=== PATIENT | male | born 1955 | race Caucasian/White ===

== ENCOUNTER → 2016-05-05 | Outpatient (CLI) | payer OTHER ==
[~2016-05-05] MED LIST: ALDACTONE100 MG PO; ASPIRIN81 M2 PO; ASPIRIN81 MG PO; BIDIL PO; CHEWABLE ASPIRI81 MG PO; CIPRO PO; CLONIDINE PO; COUMADIN PO; FOLIC ACID1 MG PO; GABAPENTIN300 M2 PO; HCTZ; HYDROCHLOROTH12.5 MG PO; IBUPROFEN; LASIX PO; LEVAQUIN PO; LIBRIUM25 M1 DOB; LIBRIUM25 M1 PO; LIPITOR PO; LIPITOR20 MG DOB; LOPRESSOR PO; MAGNESIUM400 MG PO; MEDROL DOSEPAK4 MG; METOPROLOL TAR25 MG PO; METOPROLOL TART25 MG PO; MOBIC PO; NICOTINE TRANSD14 MG EXT; NITROGLYCERIN; NITROSTAT0.4 MG SL; NORCO1 TAB 10/3 PO; PERCOCET 10/3251 TAB PO; PERCOCET 5-3251 TAB PO; PERCOCET 7.5-31 EACH PO; PLAVIX PO; PRILOSEC20 MG PO; PRINIVIL20 M1 PO; PROTONIX PO; THIAMINE HCL100 M1 PO; THIAMINE HCL100 M2 PO; TOPROL XL PO; ZESTRIL10 M1 PO; ZESTRIL40 MG PO
--- NOTE | ~2016-05-05 | XA170 ---
[facility] A Service of [facility] & [facility] RADIOLOGY TEXT RESULTS PATIENT: GUILHERME HECTOR LOCATION: [facility] : [birth year] UNIT #: [id number] AGE: [address]: Jim Branch MD SEX: M ORDER DR: [id number] [facility] [address] [place], [place] [address] [id number] O MR#: [id number] Acc #: [id number] NAME: GUILHERME HECTOR. : 1955 SEX: M STUDY DATE/TIME: 05/05/2016 15:10 UNIT: [facility] ROOM: STUDY DESCRIPTION: XA Paracentesis W Image Attending Physician: Jim Branch M.D. Referring Physician: Jim Branch M.D. Ordering Physician: Jim Branch M.D. Primary Care Physician: Lala Nicholson M.D. MEDICAL IMAGING REPORT This report is preliminary unless electronic signature is present EXAM Ultrasound guided paracentesis INDICATION Ascites. PROCEDURE The risks, benefits, and alternatives to the procedure were explained to the patient and signed, informed consent was obtained. He was placed supine on the stretcher. Preliminary ultrasound of the abdomen was performed which demonstrated a large volume of ascites. This image was permanently saved. The overlying skin was marked. Patient was prepped and draped in the usual sterile fashion. Time-out was performed as per protocol. The skin and subcutaneous tissues were anesthetized with buffered lidocaine and a [employer] catheter was advanced into the fluid with aspiration of serous material. Catheter was hooked to suction tubing. There is evacuation of a total of 12,500 mL of serous material. The catheter was then removed and manual pressure was applied until hemostasis was obtained. IMPRESSION Technically successful ultrasound guided paracentesis with evacuation of 12,500 mL of serous material. Ultrasound was used during the procedure and permanent images were saved. Dictated by... Padmini Page M.D. THIS IS AN ELECTRONICALLY VERIFIED REPORT Padmini Page M.D. at 05/06/2016 5:11 PM AFF/jw TD: 05/06/2016 10:13 [facility] A Service of [facility] & [facility] RADIOLOGY TEXT RESULTS PATIENT: GUILHERME HECTOR LOCATION: [facility] ACC #: [id number] : [birth year] UNIT #: [id number] AGE: [address]: Jim Branch MD SEX: M ORDER DR: JOB #: [id number] MEDICAL IMAGING REPORT COPY
== END | disposition home or self-care (01) ==
LOC: CIVR 13:49
DX: R18.8 Other ascites (principal)

== ENCOUNTER → 2016-05-14 | Outpatient (CLI) | payer OTHER ==
[2016-05-14 10:01] LABS: ALKALINE PHOSPHATASE 148 U/L (32-92); ALT (SGPT) 52 U/L (10-40); AST (SGOT) 78 U/L (10-42); BILIRUBIN,TOTAL 3.8 mg/dL (0.2-2.0); BLOOD UREA NITROGEN 13 mg/dL (9-23); BUN/CREATININE RATIO 18.57; CALCIUM SERUM 8.2 mg/dL (8.4-10.2); CARBON DIOXIDE 28 mmol/L (22-31); CHLORIDE 108 mmol/L (100-111); CREATININE SERUM 0.7 mg/dL (0.6-1.4); GLOM FILT RATE Estimated ABOVE60 mL/min (>60); GLUCOSE FASTING 108 mg/dL (70-110); POTASSIUM 4.4 mmol/L (3.5-5.1); PROTEIN TOTAL SERUM 6.8 g/dL (6.0-8.3); SODIUM 136 mmol/L (135-145)
== END | disposition home or self-care (01) ==
LOC: CLAB 08:28
PROVIDERS: Internal Medicine
DX: K74.60 Unspecified cirrhosis of liver (principal); B19.10 Unspecified viral hepatitis B without hepatic coma
CPT/HCPCS: 36415; 80053; 87517; 87522

== ENCOUNTER → 2016-05-20 | Outpatient (CLI) | payer OTHER ==
--- NOTE | ~2016-05-20 | XA170 ---
[facility] A Service of [facility] & [facility] RADIOLOGY TEXT RESULTS PATIENT: GUILHERME HECTOR LOCATION: [facility] : [birth year] UNIT #: [id number] AGE: [address]: Jim Branch MD SEX: M ORDER DR: [id number] [facility] [address] [place], [place] [address] [id number] O MR#: [id number] Acc #: [id number] NAME: GUILHERME HECTOR. : 1955 SEX: M STUDY DATE/TIME: 05/20/2016 12:07 UNIT: [facility] ROOM: STUDY DESCRIPTION: XA Paracentesis W Image Attending Physician: Jim Branch M.D. Referring Physician: Jim Branch M.D. Ordering Physician: Jim Branch M.D. Primary Care Physician: Lala Nicholson M.D. MEDICAL IMAGING REPORT This report is preliminary unless electronic signature is present EXAM Ultrasound-guided paracentesis, 05/20/2016. HISTORY Recurrent ascites. TECHNIQUE Using ultrasound guidance, a skin site was selected and marked. After sterile preparation, draping, and local anesthesia, paracentesis was performed with a [employer] needle catheter. A total of 14.2 liters of fluid were removed. There were no complications, and the patient tolerated the procedure well. IMPRESSION Successful ultrasound-guided right lower quadrant paracentesis with removal of 14.2 liters of fluid without complication. Dictated by... Alvaro Sidhu M.D. THIS IS AN ELECTRONICALLY VERIFIED REPORT Alvaro Sidhu M.D. at 05/25/2016 5:06 PM MONROE/roger TD: 05/22/2016 13:56 JOB #: [id number] MEDICAL IMAGING REPORT COPY
[2016-05-20 11:28] LABS: HEMATOCRIT 41.6 % (38.0-50.0); HEMOGLOBIN 14.3 gm/dL (13.0-16.0); MEAN CELL VOLUME 106.7 FL (83-96); MEAN CORPUSCULAR HEMOGLOBIN 36.6 PG (28-34); MEAN CORPUSCULAR HGB CONC 34.3 g/dL (30-36); MEAN PLATELET VOLUME 8.8 FL (6.5-11.5); RED BLOOD COUNT 3.9 X10e (3.90-5.60); RED CELL DISTRIBUTION WIDTH 14.5 % (11.0-15.5); WHITE BLOOD COUNT 6.9 X10e3 (4.0-10.5)
[2016-05-20 11:37] LABS: INR 1.4; PARTIAL THROMBOPLASTIN TIME 33.1 SECONDS (23.5-31.3); PROTHROMBIN TIME (PATIENT) 14.9 SECONDS (9.6-11.5)
== END | disposition home or self-care (01) ==
LOC: CIVR 10:56
PROVIDERS: Internal Medicine
DX: R18.8 Other ascites (principal)
CPT/HCPCS: 36415; 85027; 85610; 85730

== ENCOUNTER 2016-05-22 08:34 | Emergency (ER) | payer OTHER ==
[2016-05-22 08:40] LABS: BASOPHIL# 0.1 X10e3 (0-0.3); EOSINOPHIL# 0.3 X10e3 (0-0.7); EOSINOPHIL% 5.1 % (0.0-7.0); HEMATOCRIT 43.4 % (38.0-50.0); HEMOGLOBIN 14.9 gm/dL (13.0-16.0); LYMPHOCYTE# 1.1 X10e3 (1.0-3.5); MEAN CELL VOLUME 107.8 FL (83-96); MEAN CORPUSCULAR HGB CONC 34.3 g/dL (30-36); MEAN PLATELET VOLUME 9.2 FL (6.5-11.5); MONOCYTE# 1.2 X10e3 (0-1.0); MONOCYTE% 19.5 % (3.0-12.0); NEUTROPHIL# 3.3 X10e3 (1.5-7.1); NEUTROPHIL% 55.4 % (40-75); RED BLOOD COUNT 4.03 X10e (3.90-5.60); RED CELL DISTRIBUTION WIDTH 14.6 % (11.0-15.5)
[2016-05-22 09:01] LABS: DIFF IND YES; PLATELET COUNT 72 X10e3 (140-420)
[2016-05-22 09:20] LABS: BLOOD UREA NITROGEN 15 mg/dL (9-23); BUN/CREATININE RATIO 18.75; CARBON DIOXIDE 29 mmol/L (22-31); CHLORIDE 103 mmol/L (100-111); CREATININE SERUM 0.8 mg/dL (0.6-1.4); GLOM FILT RATE Estimated ABOVE60 mL/min (>60); GLUCOSE FASTING 98 mg/dL (70-110); POTASSIUM 4.4 mmol/L (3.5-5.1); SODIUM 131 mmol/L (135-145)
[2016-05-22 09:24] LABS: PLATELET ESTIMATE DECREASED (NORMAL)
[2016-05-22 09:26] LABS: ANISOCYTOSIS SL
== END 2016-05-22 10:07 | disposition home or self-care (01) ==
LOC: CED 08:34
PROVIDERS: Nurse Practitioner Family
DX: M62.838 Other muscle spasm (principal); I25.2 Old myocardial infarction; I10 Essential (primary) hypertension; F17.210 Nicotine dependence, cigarettes, uncomplicated
CPT/HCPCS: 36415; 80048; 85025; 99284

== ENCOUNTER → 2016-06-05 | Outpatient (CLI) | payer OTHER ==
--- NOTE | ~2016-06-05 | XA170 ---
[facility] A Service of [facility] & [facility] RADIOLOGY TEXT RESULTS PATIENT: GUILHERME HECTOR LOCATION: [facility] : [birth year] UNIT #: [id number] AGE: [address]: Jim Branch MD SEX: M ORDER DR: [id number] [facility] [address] [place], [place] [address] [id number] O MR#: [id number] Acc #: [id number] NAME: GUILHERME HECTOR. : 1955 SEX: M STUDY DATE/TIME: 06/05/2016 9:41 UNIT: [facility] ROOM: STUDY DESCRIPTION: XA Paracentesis W Image Attending Physician: Jim Branch M.D. Ordering Physician: Jim Branch M.D. Primary Care Physician: Lala Nicholson M.D. MEDICAL IMAGING REPORT This report is preliminary unless electronic signature is present EXAM Ultrasound-guided paracentesis INDICATIONS Ascites. PROCEDURE Risks, benefits, and alternatives to the procedure were explained to the patient, and signed, informed consent was obtained. He was placed supine on the stretcher. Preliminary ultrasound of the abdomen was performed which demonstrated a large volume of ascites. This image was permanently saved overlying skin was marked. Patient was prepped and draped in the usual sterile fashion. Time-out was performed as per protocol. Skin and subcutaneous tissues were anesthetized with buffered lidocaine and a Yueh catheter was advanced into the fluid with aspiration of serous material. Catheter was hooked to suction tubing. There was evacuation of 12.2 L of serous material catheter was then removed and manual pressure was applied until hemostasis was obtained. IMPRESSION Technically successful ultrasound-guided paracentesis with evacuation of 12.2 L of serous material. Ultrasound was used during the procedure and permanent images were saved. Dictated by... Padmini Page M.D. THIS IS AN ELECTRONICALLY VERIFIED REPORT Padmini Page M.D. at 06/08/2016 4:46 PM AFF/rnr TD: 06/05/2016 23:08 JOB #: [id number] [facility]. [facility] A Service of [facility] & [facility] RADIOLOGY TEXT RESULTS PATIENT: GUILHERME HECTOR LOCATION: [facility] #: [id number] : [birth year] UNIT #: [id number] AGE: [address]: Jim Branch MD SEX: M ORDER DR: MEDICAL IMAGING REPORT Page 1 of 1 COPY
== END | disposition home or self-care (01) ==
LOC: CIVR 09:37
PROC: 0W9G3ZX Drainage of Peritoneal Cavity, Percutaneous Approach, Diagnostic (ICD-10-PCS; principal; 2016-06-05)
DX: R18.8 Other ascites (principal)

== ENCOUNTER → 2016-06-22 | Outpatient (CLI) | payer OTHER ==
--- NOTE | ~2016-06-22 | XA170 ---
[facility] A Service of [facility] & [facility] RADIOLOGY TEXT RESULTS PATIENT: GUILHERME HECTOR LOCATION: [facility] : 57 UNIT #: [id number] AGE: [address]: Jim Branch MD SEX: M ORDER DR: [id number] [facility] [address] [place], [place] [address] [id number] O MR#: [id number] Acc #: [id number] NAME: GUILHERME HECTOR. : 1955 SEX: M STUDY DATE/TIME: 06/22/2016 10:22 UNIT: [facility] ROOM: STUDY DESCRIPTION: XA Paracentesis W Image Attending Physician: Jim Branch M.D. Referring Physician: Jim Branch M.D. Ordering Physician: Jim Branch M.D. Primary Care Physician: Lala Nicholson M.D. MEDICAL IMAGING REPORT This report is preliminary unless electronic signature is present EXAM Ultrasound-guided paracentesis INDICATION Ascites. PROCEDURE The risks, benefits, and alternatives to the procedure were explained to the patient, and signed, informed consent was obtained. Patient was placed supine on a stretcher. Preliminary ultrasound of the abdomen was performed which demonstrated a large volume of ascites. This image was permanently saved. Overlying skin was marked. Patient was prepped and draped in the usual sterile fashion. Time-out was performed as per protocol. Skin and subcutaneous tissues were anesthetized with buffered Lidocaine. [employer] catheter was advanced into the fluid with aspiration of serous material. Catheter was hooked to suction tubing and there was evacuation of a total of 12,100 mL of serous material. Catheter was then removed and manual pressure was applied until hemostasis was obtained. IMPRESSION Technically successful ultrasound-guided paracentesis with evacuation of 12,100 mL of serous material. Ultrasound was used during the procedure and permanent images were saved. Dictated by... Padmini Page M.D. THIS IS AN ELECTRONICALLY VERIFIED REPORT Padmini Page M.D. at 06/24/2016 12:21 PM AFF/mjs TD: 06/23/2016 10:23 [facility] A Service of [facility] & [facility] RADIOLOGY TEXT RESULTS PATIENT: GUILHERME HECTOR LOCATION: [facility] ACC #: [id number] : [birth year] UNIT #: [id number] AGE: [address]: Jim Branch MD SEX: M ORDER DR: JOB #: [id number] MEDICAL IMAGING REPORT Page 1 of 1 COPY
[2016-06-22 10:26] LABS: BASOPHIL% 0.4 % (0-2.5); EOSINOPHIL# 0.3 X10e3 (0-0.7); EOSINOPHIL% 4.8 % (0.0-7.0); HEMATOCRIT 42.3 % (38.0-50.0); HEMOGLOBIN 14.2 gm/dL (13.0-16.0); LYMPHOCYTE% 14.1 % (17.0-45.0); MEAN CELL VOLUME 108.5 FL (83-96); MEAN CORPUSCULAR HEMOGLOBIN 36.3 PG (28-34); MEAN CORPUSCULAR HGB CONC 33.4 g/dL (30-36); MONOCYTE# 1.1 X10e3 (0-1.0); MONOCYTE% 16.3 % (3.0-12.0); NEUTROPHIL# 4.4 X10e3 (1.5-7.1); NEUTROPHIL% 64.4 % (40-75); RED CELL DISTRIBUTION WIDTH 15.4 % (11.0-15.5); WHITE BLOOD COUNT 6.8 X10e3 (4.0-10.5)
[2016-06-22 10:38] LABS: INR 1.4; PROTHROMBIN TIME (PATIENT) 14.7 SECONDS (9.6-11.5)
[2016-06-22 10:40] LABS: DIFF IND YES; PLATELET COUNT 85 X10e3 (140-420)
[2016-06-22 10:42] LABS: ANISOCYTOSIS SL; PLATELET ESTIMATE DECREASED (NORMAL)
== END | disposition home or self-care (01) ==
LOC: CIVR 09:55
PROVIDERS: Internal Medicine
DX: R18.8 Other ascites (principal)
CPT/HCPCS: 36415; 85025; 85610; 85730

== ENCOUNTER 2016-08-13 00:10 | Emergency (ER) | payer OTHER ==
[2016-08-13 02:02] LABS: URINE SOURCE CLEAN CATCH
[2016-08-13 02:13] LABS: URINE APPEARANCE CLEAR; URINE BACTERIA AUWI NEG (NEGATIVE); URINE BILIRUBIN NEG (NEG); URINE BLOOD 1+ (NEG); URINE COLOR YELLOW; URINE GLUCOSE NEG (NEG); URINE KETONE NEG (NEG); URINE LEUKOCYTE ESTERASE TRACE (NEG); URINE NITRATE NEG (NEG); URINE PROTEIN NEG (NEG); URINE SPECIFIC GRAVITY 1.012 (1.003-1.035); URINE SQUAMOUS EPITHELIAL CELL NONE SEEN /[HPF]; URINE UROBILINOGEN 0.2 MG/DL (NEG)
[2016-08-13 02:14] LABS: CULTURE INDICATED? NO
[2016-08-13 03:28] LABS: BASOPHIL% 0.4 % (0-2.5); EOSINOPHIL# 0.1 X10e3 (0-0.7); EOSINOPHIL% 1.6 % (0.0-7.0); HEMATOCRIT 39.5 % (38.0-50.0); HEMOGLOBIN 13.6 gm/dL (13.0-16.0); LYMPHOCYTE# 0.6 X10e3 (1.0-3.5); LYMPHOCYTE% 7.9 % (17.0-45.0); MEAN CELL VOLUME 106.5 FL (83-96); MEAN CORPUSCULAR HEMOGLOBIN 36.7 PG (28-34); MEAN CORPUSCULAR HGB CONC 34.4 g/dL (30-36); MEAN PLATELET VOLUME 9.1 FL (6.5-11.5); MONOCYTE# 1.5 X10e3 (0-1.0); NEUTROPHIL# 5.4 X10e3 (1.5-7.1); NEUTROPHIL% 70.1 % (40-75); RED BLOOD COUNT 3.71 X10e (3.90-5.60); RED CELL DISTRIBUTION WIDTH 15.1 % (11.0-15.5); WHITE BLOOD COUNT 7.7 X10e3 (4.0-10.5)
[2016-08-13 04:02] LABS: ALBUMIN SERUM 3.1 g/dL (3.5-5.0); BILIRUBIN,TOTAL 4.5 mg/dL (0.2-2.0); CALCIUM SERUM 9.1 mg/dL (8.4-10.2); CREATININE SERUM 0.9 mg/dL (0.6-1.4); GLOM FILT RATE Estimated 93.2 mL/min (>60); PROTEIN TOTAL SERUM 7.3 g/dL (6.0-8.3)
[2016-08-13 04:13] LABS: DIFF IND YES; PLATELET COUNT 68 X10e3 (140-420)
[2016-08-13 04:21] LABS: PLATELET ESTIMATE DECREASED (NORMAL)
== END 2016-08-13 05:25 | disposition home or self-care (01) ==
LOC: CED 00:10
PROVIDERS: Physician Assistant
DX: R33.9 Retention of urine, unspecified (principal); F17.210 Nicotine dependence, cigarettes, uncomplicated; Z79.899 Other long term (current) drug therapy
CPT/HCPCS: 36415; 51702; 80053; 81003; 85025; 99284

== ENCOUNTER 2016-08-13 14:41 | Emergency (ER) | payer OTHER | END 2016-08-13 15:20 | disposition home or self-care (01) | LOC: CED 14:41 | DX: T83.091A Other mechanical complication of indwelling urethral catheter, initial encounter (principal); R33.9 Retention of urine, unspecified | CPT/HCPCS: 51702; 99284 ==

== ENCOUNTER → 2016-08-19 | Outpatient (CLI) | payer OTHER ==
[2016-08-19 11:11] LABS: INR 1.3; PROTHROMBIN TIME (PATIENT) 13.7 SECONDS (9.6-11.5)
[2016-08-19 11:19] LABS: HEMOGLOBIN 14.4 gm/dL (13.0-16.0); MEAN CELL VOLUME 109.3 FL (83-96); MEAN CORPUSCULAR HEMOGLOBIN 37.4 PG (28-34); MEAN CORPUSCULAR HGB CONC 34.2 g/dL (30-36); RED BLOOD COUNT 3.84 X10e (3.90-5.60); RED CELL DISTRIBUTION WIDTH 16.4 % (11.0-15.5); WHITE BLOOD COUNT 8.1 X10e3 (4.0-10.5)
[2016-08-19 11:27] LABS: ALBUMIN SERUM 2.9 g/dL (3.5-5.0); ALKALINE PHOSPHATASE 161 U/L (32-92); ALT (SGPT) 69 U/L (10-40); AST (SGOT) 84 U/L (10-42); BILIRUBIN,TOTAL 5.6 mg/dL (0.2-2.0); BLOOD UREA NITROGEN 33 mg/dL (9-23); BUN/CREATININE RATIO 20.62; CALCIUM SERUM 9.7 mg/dL (8.4-10.2); CARBON DIOXIDE 28 mmol/L (22-31); CHLORIDE 97 mmol/L (100-111); CREATININE SERUM 1.6 mg/dL (0.6-1.4); GLOM FILT RATE Estimated 46.5 mL/min (>60); GLUCOSE FASTING 99 mg/dL (70-110); POTASSIUM 5.4 mmol/L (3.5-5.1); PROTEIN TOTAL SERUM 7.5 g/dL (6.0-8.3); SODIUM 134 mmol/L (135-145)
[2016-08-19 11:29] LABS: ALCOHOL BLOOD <5 mg/dL (0)
[2016-08-19 11:38] LABS: AMPHETAMINE NEG (NEG); BARBITURATES NEG (NEG); BENZODIAZEPINES NEG (NEG); COCAINE NEG (NEG); MARIJUANA NEG (NEG); OPIATES NEG (NEG); TRICYCLIC ANTIDEPRESSANTS NEG (NEG); U METHADONE NEG (NEG)
== END | disposition home or self-care (01) ==
LOC: CTPL 10:04
PROVIDERS: Internal Medicine
DX: C22.0 Liver cell carcinoma (principal); B18.2 Chronic viral hepatitis C
CPT/HCPCS: 36415; 80053; 80307; 85027; 85610; G0480

== ENCOUNTER → 2016-09-10 | Outpatient (CLI) | payer OTHER ==
[2016-09-10 13:02] LABS: BASOPHIL# 0.1 X10e3 (0-0.3); BASOPHIL% 0.8 % (0-2.5); EOSINOPHIL# 0.3 X10e3 (0-0.7); EOSINOPHIL% 2.8 % (0.0-7.0); HEMATOCRIT 27.6 % (38.0-50.0); HEMOGLOBIN 9.1 gm/dL (13.0-16.0); LYMPHOCYTE# 0.4 X10e3 (1.0-3.5); LYMPHOCYTE% 3.8 % (17.0-45.0); MEAN CELL VOLUME 92.9 FL (83-96); MEAN CORPUSCULAR HEMOGLOBIN 30.5 PG (28-34); MEAN CORPUSCULAR HGB CONC 32.8 g/dL (30-36); MEAN PLATELET VOLUME 7.2 FL (6.5-11.5); MONOCYTE# 1.2 X10e3 (0-1.0); MONOCYTE% 12.6 % (3.0-12.0); NEUTROPHIL# 7.6 X10e3 (1.5-7.1); PLATELET COUNT 401 X10e3 (140-420); RED BLOOD COUNT 2.97 X10e (3.90-5.60); RED CELL DISTRIBUTION WIDTH 18.7 % (11.0-15.5); WHITE BLOOD COUNT 9.5 X10e3 (4.0-10.5)
[2016-09-10 13:03] LABS: DIFF IND YES
[2016-09-10 13:21] LABS: ALBUMIN SERUM 2.5 g/dL (3.5-5.0); ANISOCYTOSIS MOD; BILIRUBIN,TOTAL 0.4 mg/dL (0.2-2.0); BUN/CREATININE RATIO 18.33; CALCIUM SERUM 8.4 mg/dL (8.4-10.2); CREATININE SERUM 1.2 mg/dL (0.6-1.4); GLOM FILT RATE Estimated 65.8 mL/min (>60); HYPOCHROMIA SL; MAGNESIUM 1.4 mg/dL (1.6-3.0); PHOSPHOROUS 3.6 mg/dL (2.5-4.6); PLATELET ESTIMATE NORMAL (NORMAL); POLYCHROMASIA SL; POTASSIUM 4.9 mmol/L (3.5-5.1); PROTEIN TOTAL SERUM 5.6 g/dL (6.0-8.3)
== END | disposition home or self-care (01) ==
LOC: CTPL 12:09 → CLAB 12:09
PROVIDERS: Surgery
DX: Z48.23 Encounter for aftercare following liver transplant (principal); T45.1X1D Poisoning by antineoplastic and immunosuppressive drugs, accidental (unintentional), subsequent encounter; E83.40 Disorders of magnesium metabolism, unspecified; E83.30 Disorder of phosphorus metabolism, unspecified; C22.0 Liver cell carcinoma; Z13.1 Encounter for screening for diabetes mellitus; Z79.891 Long term (current) use of opiate analgesic
CPT/HCPCS: 36415; 80053; 80197; 83735; 84100; 85025

== ENCOUNTER → 2016-09-14 | Outpatient (CLI) | payer OTHER ==
[2016-09-14 12:15] LABS: BASOPHIL# 0.1 X10e3 (0-0.3); BASOPHIL% 1.2 % (0-2.5); EOSINOPHIL# 0.1 X10e3 (0-0.7); EOSINOPHIL% 0.9 % (0.0-7.0); HEMATOCRIT 30.3 % (38.0-50.0); HEMOGLOBIN 9.7 gm/dL (13.0-16.0); LYMPHOCYTE# 0.4 X10e3 (1.0-3.5); LYMPHOCYTE% 3.6 % (17.0-45.0); MEAN CELL VOLUME 92.4 FL (83-96); MEAN CORPUSCULAR HEMOGLOBIN 29.7 PG (28-34); MEAN CORPUSCULAR HGB CONC 32.1 g/dL (30-36); MEAN PLATELET VOLUME 6.8 FL (6.5-11.5); MONOCYTE# 0.9 X10e3 (0-1.0); MONOCYTE% 7.5 % (3.0-12.0); NEUTROPHIL# 10.4 X10e3 (1.5-7.1); NEUTROPHIL% 86.8 % (40-75); PLATELET COUNT 501 X10e3 (140-420); RED BLOOD COUNT 3.28 X10e (3.90-5.60); RED CELL DISTRIBUTION WIDTH 19.3 % (11.0-15.5)
[2016-09-14 12:16] LABS: DIFF IND YES
[2016-09-14 12:24] LABS: CHOLESTEROL 175 mg/dL (0-200); TRIGLYCERIDES 190 mg/dL (10-160)
[2016-09-14 12:38] LABS: BILIRUBIN,TOTAL 0.3 mg/dL (0.2-2.0); BUN/CREATININE RATIO 14.54; CALCIUM SERUM 8.4 mg/dL (8.4-10.2); CREATININE SERUM 1.1 mg/dL (0.6-1.4); GLOM FILT RATE Estimated 73.1 mL/min (>60); MAGNESIUM 1.4 mg/dL (1.6-3.0); PHOSPHOROUS 4.2 mg/dL (2.5-4.6); POTASSIUM 4.4 mmol/L (3.5-5.1); PROTEIN TOTAL SERUM 6.4 g/dL (6.0-8.3)
[2016-09-14 13:08] LABS: PLATELET ESTIMATE INCREASED (NORMAL)
[2016-09-14 13:09] LABS: ANISOCYTOSIS MOD; POLYCHROMASIA SL
[2016-09-16 15:01] LABS: HEP B SURFACE AG Nonreactive (Nonreactive)
== END | disposition home or self-care (01) ==
LOC: CTPL 11:25
PROVIDERS: Surgery
DX: Z48.23 Encounter for aftercare following liver transplant (principal); T45.1X1D Poisoning by antineoplastic and immunosuppressive drugs, accidental (unintentional), subsequent encounter; E83.40 Disorders of magnesium metabolism, unspecified; E83.30 Disorder of phosphorus metabolism, unspecified; K73.2 Chronic active hepatitis, not elsewhere classified; B97.7 Papillomavirus as the cause of diseases classified elsewhere; Z79.891 Long term (current) use of opiate analgesic
CPT/HCPCS: 36415; 80053; 80197; 82465; 83735; 84100; 84478; 85025; 87340; 87517; 87522; 87806

== ENCOUNTER → 2016-09-17 | Outpatient (CLI) | payer OTHER ==
[2016-09-17 10:13] LABS: BASOPHIL# 0.2 X10e3 (0-0.3); BASOPHIL% 1.4 % (0-2.5); EOSINOPHIL# 0.3 X10e3 (0-0.7); EOSINOPHIL% 1.9 % (0.0-7.0); HEMATOCRIT 29.8 % (38.0-50.0); HEMOGLOBIN 9.4 gm/dL (13.0-16.0); LYMPHOCYTE# 0.5 X10e3 (1.0-3.5); LYMPHOCYTE% 3.4 % (17.0-45.0); MEAN CELL VOLUME 92.2 FL (83-96); MEAN CORPUSCULAR HEMOGLOBIN 29.2 PG (28-34); MEAN CORPUSCULAR HGB CONC 31.7 g/dL (30-36); MEAN PLATELET VOLUME 6.4 FL (6.5-11.5); MONOCYTE# 1.1 X10e3 (0-1.0); MONOCYTE% 7.3 % (3.0-12.0); NEUTROPHIL# 13.1 X10e3 (1.5-7.1); PLATELET COUNT 407 X10e3 (140-420); RED BLOOD COUNT 3.23 X10e (3.90-5.60); RED CELL DISTRIBUTION WIDTH 19.7 % (11.0-15.5); WHITE BLOOD COUNT 15.3 X10e3 (4.0-10.5)
[2016-09-17 10:15] LABS: DIFF IND YES
[2016-09-17 11:24] LABS: ANISOCYTOSIS MOD; POLYCHROMASIA SL
[2016-09-17 11:25] LABS: PLATELET ESTIMATE NORMAL (NORMAL)
[2016-09-17 12:07] LABS: BILIRUBIN,TOTAL 0.3 mg/dL (0.2-2.0); CALCIUM SERUM 8.8 mg/dL (8.4-10.2); CREATININE SERUM 1.2 mg/dL (0.6-1.4); GLOM FILT RATE Estimated 65.8 mL/min (>60); MAGNESIUM 1.5 mg/dL (1.6-3.0); PHOSPHOROUS 3.2 mg/dL (2.5-4.6); PROTEIN TOTAL SERUM 6.1 g/dL (6.0-8.3)
== END | disposition home or self-care (01) ==
LOC: CTPL 09:40
PROVIDERS: Surgery
DX: Z48.23 Encounter for aftercare following liver transplant (principal); T45.1X1D Poisoning by antineoplastic and immunosuppressive drugs, accidental (unintentional), subsequent encounter; E83.40 Disorders of magnesium metabolism, unspecified; E83.30 Disorder of phosphorus metabolism, unspecified; B18.1 Chronic viral hepatitis B without delta-agent; Z79.891 Long term (current) use of opiate analgesic
CPT/HCPCS: 36415; 80053; 80197; 83735; 84100; 85025

== ENCOUNTER 2016-09-19 05:30 | Emergency (ER) | payer OTHER | END 2016-09-19 06:33 | disposition home or self-care (01) | LOC: CED 05:30 | DX: R10.9 Unspecified abdominal pain (principal); I10 Essential (primary) hypertension; F17.200 Nicotine dependence, unspecified, uncomplicated; Z90.49 Acquired absence of other specified parts of digestive tract; Z87.442 Personal history of urinary calculi | CPT/HCPCS: 99283 ==

== ENCOUNTER → 2016-09-21 | Outpatient (CLI) | payer OTHER ==
[2016-09-21 12:16] LABS: BASOPHIL# 0.3 X10e3 (0-0.3); BASOPHIL% 2.1 % (0-2.5); EOSINOPHIL# 0.1 X10e3 (0-0.7); EOSINOPHIL% 0.7 % (0.0-7.0); HEMATOCRIT 30.2 % (38.0-50.0); HEMOGLOBIN 10.1 gm/dL (13.0-16.0); LYMPHOCYTE# 0.4 X10e3 (1.0-3.5); LYMPHOCYTE% 3.2 % (17.0-45.0); MEAN CELL VOLUME 92.2 FL (83-96); MEAN CORPUSCULAR HEMOGLOBIN 30.9 PG (28-34); MEAN CORPUSCULAR HGB CONC 33.5 g/dL (30-36); MEAN PLATELET VOLUME 6.5 FL (6.5-11.5); MONOCYTE# 0.9 X10e3 (0-1.0); MONOCYTE% 6.9 % (3.0-12.0); NEUTROPHIL# 11.8 X10e3 (1.5-7.1); NEUTROPHIL% 87.1 % (40-75); PLATELET COUNT 333 X10e3 (140-420); RED BLOOD COUNT 3.28 X10e (3.90-5.60); RED CELL DISTRIBUTION WIDTH 19.9 % (11.0-15.5); WHITE BLOOD COUNT 13.5 X10e3 (4.0-10.5)
[2016-09-21 12:30] LABS: DIFF IND NO
[2016-09-21 13:20] LABS: ALBUMIN SERUM 3.2 g/dL (3.5-5.0); BILIRUBIN,TOTAL 0.4 mg/dL (0.2-2.0); BUN/CREATININE RATIO 19.09; CALCIUM SERUM 9.2 mg/dL (8.4-10.2); CREATININE SERUM 1.1 mg/dL (0.6-1.4); GLOM FILT RATE Estimated 73.1 mL/min (>60); MAGNESIUM 1.5 mg/dL (1.6-3.0); PHOSPHOROUS 3.7 mg/dL (2.5-4.6); POTASSIUM 5.2 mmol/L (3.5-5.1); PROTEIN TOTAL SERUM 6.2 g/dL (6.0-8.3)
== END | disposition home or self-care (01) ==
LOC: CTPL 11:39
PROVIDERS: Surgery
DX: Z48.23 Encounter for aftercare following liver transplant (principal); T45.1X1D Poisoning by antineoplastic and immunosuppressive drugs, accidental (unintentional), subsequent encounter; E83.40 Disorders of magnesium metabolism, unspecified; E83.30 Disorder of phosphorus metabolism, unspecified; B18.1 Chronic viral hepatitis B without delta-agent; Z79.891 Long term (current) use of opiate analgesic
CPT/HCPCS: 36415; 80053; 80197; 82465; 83735; 84100; 84478; 85025

== ENCOUNTER → 2016-09-28 | Outpatient (CLI) | payer OTHER ==
[2016-09-28 09:16] LABS: BASOPHIL# 0.2 X10e3 (0-0.3); BASOPHIL% 1.8 % (0-2.5); EOSINOPHIL# 0.3 X10e3 (0-0.7); EOSINOPHIL% 2.9 % (0.0-7.0); HEMATOCRIT 33.1 % (38.0-50.0); HEMOGLOBIN 10.7 gm/dL (13.0-16.0); LYMPHOCYTE# 0.6 X10e3 (1.0-3.5); LYMPHOCYTE% 6.2 % (17.0-45.0); MEAN CELL VOLUME 93.7 FL (83-96); MEAN CORPUSCULAR HEMOGLOBIN 30.2 PG (28-34); MEAN CORPUSCULAR HGB CONC 32.3 g/dL (30-36); MEAN PLATELET VOLUME 6.8 FL (6.5-11.5); MONOCYTE# 0.8 X10e3 (0-1.0); MONOCYTE% 7.7 % (3.0-12.0); NEUTROPHIL# 8.3 X10e3 (1.5-7.1); NEUTROPHIL% 81.4 % (40-75); PLATELET COUNT 251 X10e3 (140-420); RED BLOOD COUNT 3.53 X10e (3.90-5.60); RED CELL DISTRIBUTION WIDTH 20.5 % (11.0-15.5); WHITE BLOOD COUNT 10.2 X10e3 (4.0-10.5)
[2016-09-28 09:18] LABS: DIFF IND NO
[2016-09-28 10:21] LABS: ALBUMIN SERUM 3.6 g/dL (3.5-5.0); BILIRUBIN,TOTAL 0.4 mg/dL (0.2-2.0); BUN/CREATININE RATIO 24.54; CALCIUM SERUM 9.4 mg/dL (8.4-10.2); CREATININE SERUM 1.1 mg/dL (0.6-1.4); GLOM FILT RATE Estimated 73.1 mL/min (>60); MAGNESIUM 1.3 mg/dL (1.6-3.0); POTASSIUM 4.4 mmol/L (3.5-5.1); PROTEIN TOTAL SERUM 6.2 g/dL (6.0-8.3)
== END | disposition home or self-care (01) ==
LOC: CTPL 08:40
PROVIDERS: Surgery
DX: Z48.23 Encounter for aftercare following liver transplant (principal); Z13.1 Encounter for screening for diabetes mellitus; T45.1X1D Poisoning by antineoplastic and immunosuppressive drugs, accidental (unintentional), subsequent encounter; E83.40 Disorders of magnesium metabolism, unspecified; C22.0 Liver cell carcinoma; B18.1 Chronic viral hepatitis B without delta-agent; Z79.891 Long term (current) use of opiate analgesic
CPT/HCPCS: 36415; 80053; 80197; 83735; 85025

== ENCOUNTER → 2016-10-06 | Outpatient (CLI) | payer OTHER ==
[2016-10-06 10:08] LABS: BASOPHIL# 0.1 X10e3 (0-0.3); BASOPHIL% 0.9 % (0-2.5); EOSINOPHIL# 0.2 X10e3 (0-0.7); EOSINOPHIL% 2.9 % (0.0-7.0); HEMATOCRIT 35.9 % (38.0-50.0); HEMOGLOBIN 11.7 gm/dL (13.0-16.0); LYMPHOCYTE# 0.5 X10e3 (1.0-3.5); MEAN CELL VOLUME 92.3 FL (83-96); MEAN CORPUSCULAR HEMOGLOBIN 30.2 PG (28-34); MEAN CORPUSCULAR HGB CONC 32.7 g/dL (30-36); MEAN PLATELET VOLUME 6.7 FL (6.5-11.5); MONOCYTE# 0.7 X10e3 (0-1.0); MONOCYTE% 9.8 % (3.0-12.0); NEUTROPHIL# 5.8 X10e3 (1.5-7.1); NEUTROPHIL% 79.4 % (40-75); PLATELET COUNT 237 X10e3 (140-420); RED BLOOD COUNT 3.89 X10e (3.90-5.60); RED CELL DISTRIBUTION WIDTH 19.3 % (11.0-15.5); WHITE BLOOD COUNT 7.3 X10e3 (4.0-10.5)
[2016-10-06 10:09] LABS: DIFF IND YES
[2016-10-06 10:13] LABS: BILIRUBIN,TOTAL 0.8 mg/dL (0.2-2.0); BUN/CREATININE RATIO 20.9; CREATININE SERUM 1.1 mg/dL (0.6-1.4); GLOM FILT RATE Estimated 73.1 mL/min (>60); MAGNESIUM 1.5 mg/dL (1.6-3.0); POTASSIUM 4.1 mmol/L (3.5-5.1); PROTEIN TOTAL SERUM 6.8 g/dL (6.0-8.3)
[2016-10-06 11:01] LABS: ANISOCYTOSIS SL; PLATELET ESTIMATE NORMAL (NORMAL)
== END | disposition home or self-care (01) ==
LOC: CTPL 09:19
PROVIDERS: Surgery
DX: Z48.23 Encounter for aftercare following liver transplant (principal); B18.1 Chronic viral hepatitis B without delta-agent; T45.1X1D Poisoning by antineoplastic and immunosuppressive drugs, accidental (unintentional), subsequent encounter; Z79.891 Long term (current) use of opiate analgesic
CPT/HCPCS: 36415; 80053; 80197; 83735; 85025

== ENCOUNTER 2016-10-08 07:42 | Emergency (ER) | payer OTHER ==
--- NOTE | ~2016-10-08 | CR210 ---
[facility] A Service of [facility] & [facility] RADIOLOGY TEXT RESULTS PATIENT: GUILHERME HECTOR LOCATION: [facility] : 57 UNIT #: [id number] AGE: [address]: Reynaldo Valente MD SEX: M ORDER DR: [id number] [place] [id number] E MR#: [id number] Acc #: [id number] NAME: GUILHERME HECTOR : 1955 SEX: M STUDY DATE/TIME: 10/08/2016 8:31 UNIT: [facility] ROOM: STUDY DESCRIPTION: CR Ribs Uni 2 View W PA Ch Lt Attending Physician: Reynaldo Valente M.D. Ordering Physician: Reynaldo Valente M.D. Primary Care Physician: Lala Nicholson M.D. MEDICAL IMAGING REPORT This report is preliminary unless electronic signature is present. EXAM Left ribs. HISTORY Left rib pain anteriorly and laterally after falling on the steps yesterday. TECHNIQUE Three views of the left ribs were obtained. FINDINGS The left lung is fully expanded. No pneumothorax. The inspiratory effort is shallow. No displaced rib fractures or destructive bone lesions are seen. No pleural thickening is noted. IMPRESSION Negative rib series. Dictated by... Nilson Potter M.D. THIS IS AN ELECTRONICALLY VERIFIED REPORT Nilson Potter M.D. at 10/08/2016 3:39 PM RLF/yonatan TD: 10/08/2016 09:39 JOB #: [id number] MEDICAL IMAGING REPORT Page 1 of 1
[2016-10-08 10:34] LABS: AMPHETAMINE NEG (NEG); BARBITURATES NEG (NEG); BENZODIAZEPINES POS (NEG); COCAINE NEG (NEG); MARIJUANA NEG (NEG); OPIATES POS (NEG); TRICYCLIC ANTIDEPRESSANTS NEG (NEG); U METHADONE NEG (NEG)
== END 2016-10-08 10:53 | disposition home or self-care (01) ==
LOC: SED 07:42
PROVIDERS: Emergency Medicine
DX: S20.212A Contusion of left front wall of thorax, initial encounter (principal); W10.9XXA Fall (on) (from) unspecified stairs and steps, initial encounter; Y92.9 Unspecified place or not applicable
CPT/HCPCS: 36415; 71100; 80307; 96372; 99284; G0480; J1170

== ENCOUNTER → 2016-10-16 | Outpatient (CLI) | payer OTHER ==
[2016-10-16 11:59] LABS: BASOPHIL% 0.9 % (0-2.5); EOSINOPHIL# 0.1 X10e3 (0-0.7); EOSINOPHIL% 1.3 % (0.0-7.0); HEMOGLOBIN 12.5 gm/dL (13.0-16.0); LYMPHOCYTE# 0.5 X10e3 (1.0-3.5); LYMPHOCYTE% 11.8 % (17.0-45.0); MEAN CELL VOLUME 91.5 FL (83-96); MEAN CORPUSCULAR HEMOGLOBIN 30.1 PG (28-34); MEAN CORPUSCULAR HGB CONC 32.9 g/dL (30-36); MONOCYTE# 0.5 X10e3 (0-1.0); MONOCYTE% 12.2 % (3.0-12.0); NEUTROPHIL# 3.3 X10e3 (1.5-7.1); NEUTROPHIL% 73.8 % (40-75); PLATELET COUNT 193 X10e3 (140-420); RED BLOOD COUNT 4.16 X10e (3.90-5.60); WHITE BLOOD COUNT 4.4 X10e3 (4.0-10.5)
[2016-10-16 12:00] LABS: DIFF IND YES
[2016-10-16 12:19] LABS: ANISOCYTOSIS SL; PLATELET ESTIMATE NORMAL (NORMAL)
[2016-10-16 12:24] LABS: BILIRUBIN,TOTAL 0.4 mg/dL (0.2-2.0); CALCIUM SERUM 9.5 mg/dL (8.4-10.2); CREATININE SERUM 1.2 mg/dL (0.6-1.4); GLOM FILT RATE Estimated 65.4 mL/min (>60); MAGNESIUM 1.6 mg/dL (1.6-3.0); PROTEIN TOTAL SERUM 7.1 g/dL (6.0-8.3)
[2016-10-16 12:54] LABS: POTASSIUM 5.6 mmol/L (3.5-5.1)
[2016-10-24 14:06] LABS: HEP B SURFACE AG Nonreactive (Nonreactive); HEPATITIS B SURFACE ANTIBODY 706 mIU/mL (>=10)
== END | disposition home or self-care (01) ==
LOC: CTPL 11:05
PROVIDERS: Surgery
DX: Z48.23 Encounter for aftercare following liver transplant (principal); T45.1X1D Poisoning by antineoplastic and immunosuppressive drugs, accidental (unintentional), subsequent encounter; E83.40 Disorders of magnesium metabolism, unspecified; B18.1 Chronic viral hepatitis B without delta-agent; Z79.891 Long term (current) use of opiate analgesic
CPT/HCPCS: 36415; 80053; 82465; 83735; 84478; 85025; 86706; 87340; 87517; 87522

== ENCOUNTER → 2016-10-27 | Outpatient (CLI) | payer OTHER ==
[2016-10-27 10:03] LABS: BASOPHIL# 0.1 X10e3 (0-0.3); BASOPHIL% 1.3 % (0-2.5); EOSINOPHIL# 0.1 X10e3 (0-0.7); HEMATOCRIT 42.9 % (38.0-50.0); HEMOGLOBIN 14.3 gm/dL (13.0-16.0); LYMPHOCYTE# 0.7 X10e3 (1.0-3.5); LYMPHOCYTE% 11.1 % (17.0-45.0); MEAN CELL VOLUME 89.2 FL (83-96); MEAN CORPUSCULAR HEMOGLOBIN 29.8 PG (28-34); MEAN CORPUSCULAR HGB CONC 33.4 g/dL (30-36); MEAN PLATELET VOLUME 6.8 FL (6.5-11.5); MONOCYTE# 0.8 X10e3 (0-1.0); MONOCYTE% 11.4 % (3.0-12.0); NEUTROPHIL% 75.2 % (40-75); PLATELET COUNT 239 X10e3 (140-420); RED BLOOD COUNT 4.81 X10e (3.90-5.60); WHITE BLOOD COUNT 6.6 X10e3 (4.0-10.5)
[2016-10-27 10:04] LABS: DIFF IND NO
[2016-10-27 10:50] LABS: ALBUMIN SERUM 4.3 g/dL (3.5-5.0); BILIRUBIN,TOTAL 0.8 mg/dL (0.2-2.0); BUN/CREATININE RATIO 22.66; CALCIUM SERUM 9.8 mg/dL (8.4-10.2); CREATININE SERUM 1.5 mg/dL (0.6-1.4); GLOM FILT RATE Estimated 49.9 mL/min (>60); MAGNESIUM 1.5 mg/dL (1.6-3.0); POTASSIUM 5.3 mmol/L (3.5-5.1); PROTEIN TOTAL SERUM 7.2 g/dL (6.0-8.3)
== END | disposition home or self-care (01) ==
LOC: CTPL 09:24
PROVIDERS: Surgery
DX: Z48.23 Encounter for aftercare following liver transplant (principal); T45.1X1D Poisoning by antineoplastic and immunosuppressive drugs, accidental (unintentional), subsequent encounter; E83.40 Disorders of magnesium metabolism, unspecified; Z79.891 Long term (current) use of opiate analgesic
CPT/HCPCS: 36415; 80053; 80197; 83735; 85025

== ENCOUNTER → 2016-11-09 | Outpatient (CLI) | payer OTHER ==
[2016-11-09 11:37] LABS: BASOPHIL% 0.3 % (0-2.5); EOSINOPHIL# 0.1 X10e3 (0-0.7); HEMATOCRIT 42.8 % (38.0-50.0); HEMOGLOBIN 14.5 gm/dL (13.0-16.0); LYMPHOCYTE# 0.6 X10e3 (1.0-3.5); LYMPHOCYTE% 16.5 % (17.0-45.0); MEAN CELL VOLUME 89.1 FL (83-96); MEAN CORPUSCULAR HEMOGLOBIN 30.2 PG (28-34); MEAN CORPUSCULAR HGB CONC 33.9 g/dL (30-36); MEAN PLATELET VOLUME 7.3 FL (6.5-11.5); MONOCYTE# 0.6 X10e3 (0-1.0); MONOCYTE% 18.6 % (3.0-12.0); NEUTROPHIL# 2.1 X10e3 (1.5-7.1); NEUTROPHIL% 61.6 % (40-75); PLATELET COUNT 175 X10e3 (140-420); RED BLOOD COUNT 4.81 X10e (3.90-5.60); RED CELL DISTRIBUTION WIDTH 16.4 % (11.0-15.5); WHITE BLOOD COUNT 3.4 X10e3 (4.0-10.5)
[2016-11-09 11:46] LABS: DIFF IND YES
[2016-11-09 11:58] LABS: ALBUMIN SERUM 4.1 g/dL (3.5-5.0); BILIRUBIN,TOTAL 0.6 mg/dL (0.2-2.0); BUN/CREATININE RATIO 29.28; CALCIUM SERUM 9.4 mg/dL (8.4-10.2); CREATININE SERUM 1.4 mg/dL (0.6-1.4); GLOM FILT RATE Estimated 54.2 mL/min (>60); MAGNESIUM 1.4 mg/dL (1.6-3.0); POTASSIUM 4.6 mmol/L (3.5-5.1); PROTEIN TOTAL SERUM 7.1 g/dL (6.0-8.3)
[2016-11-09 13:27] LABS: ANISOCYTOSIS SL; PLATELET ESTIMATE NORMAL (NORMAL)
== END | disposition home or self-care (01) ==
LOC: CTPL 11:07
PROVIDERS: Surgery
DX: Z48.23 Encounter for aftercare following liver transplant (principal); T45.1X1D Poisoning by antineoplastic and immunosuppressive drugs, accidental (unintentional), subsequent encounter; E83.40 Disorders of magnesium metabolism, unspecified; K73.2 Chronic active hepatitis, not elsewhere classified; Z79.891 Long term (current) use of opiate analgesic
CPT/HCPCS: 36415; 80053; 80197; 83735; 85025

== ENCOUNTER → 2016-11-17 | Outpatient (CLI) | payer OTHER ==
[2016-11-20 14:54] LABS: HEP B SURFACE AG Nonreactive (Nonreactive); HEPATITIS B SURFACE ANTIBODY 297 mIU/mL (>=10)
== END | disposition home or self-care (01) ==
LOC: CTPL 11:13
PROVIDERS: Surgery
DX: Z48.23 Encounter for aftercare following liver transplant (principal); B18.1 Chronic viral hepatitis B without delta-agent; Z79.899 Other long term (current) drug therapy
CPT/HCPCS: 36415; 86706; 87340; 87517; 87522; 87806

== ENCOUNTER → 2016-11-23 | Outpatient (CLI) | payer OTHER ==
[2016-11-23 10:46] LABS: BASOPHIL# 0.1 X10e3 (0-0.3); BASOPHIL% 1.9 % (0-2.5); EOSINOPHIL# 0.2 X10e3 (0-0.7); EOSINOPHIL% 5.4 % (0.0-7.0); HEMATOCRIT 42.1 % (38.0-50.0); HEMOGLOBIN 14.1 gm/dL (13.0-16.0); LYMPHOCYTE# 0.8 X10e3 (1.0-3.5); MEAN CELL VOLUME 88.4 FL (83-96); MEAN CORPUSCULAR HEMOGLOBIN 29.7 PG (28-34); MEAN CORPUSCULAR HGB CONC 33.5 g/dL (30-36); MEAN PLATELET VOLUME 7.1 FL (6.5-11.5); MONOCYTE% 26.9 % (3.0-12.0); NEUTROPHIL# 1.6 X10e3 (1.5-7.1); NEUTROPHIL% 44.8 % (40-75); PLATELET COUNT 204 X10e3 (140-420); RED BLOOD COUNT 4.75 X10e (3.90-5.60); RED CELL DISTRIBUTION WIDTH 15.4 % (11.0-15.5); WHITE BLOOD COUNT 3.6 X10e3 (4.0-10.5)
[2016-11-23 10:47] LABS: DIFF IND YES
[2016-11-23 11:06] LABS: ALBUMIN SERUM 4.2 g/dL (3.5-5.0); BILIRUBIN,TOTAL 0.3 mg/dL (0.2-2.0); BUN/CREATININE RATIO 26.25; CALCIUM SERUM 9.3 mg/dL (8.4-10.2); CREATININE SERUM 1.6 mg/dL (0.6-1.4); GLOM FILT RATE Estimated 46.2 mL/min (>60); MAGNESIUM 1.4 mg/dL (1.6-3.0); POTASSIUM 4.5 mmol/L (3.5-5.1); PROTEIN TOTAL SERUM 7.1 g/dL (6.0-8.3)
[2016-11-23 11:07] LABS: ANISOCYTOSIS SL; PLATELET ESTIMATE NORMAL (NORMAL)
[2016-11-23 11:23] LABS: CHOLESTEROL 181 mg/dL (0-200); TRIGLYCERIDES 148 mg/dL (10-160)
== END | disposition home or self-care (01) ==
LOC: CTPL 10:06
PROVIDERS: Surgery
DX: Z48.23 Encounter for aftercare following liver transplant (principal); T45.1X1D Poisoning by antineoplastic and immunosuppressive drugs, accidental (unintentional), subsequent encounter; E83.40 Disorders of magnesium metabolism, unspecified; Z79.891 Long term (current) use of opiate analgesic
CPT/HCPCS: 36415; 80053; 80197; 82465; 83735; 84478; 85025

== ENCOUNTER → 2016-11-30 | Outpatient (CLI) | payer OTHER ==
[2016-11-30 08:49] LABS: BASOPHIL# 0.1 X10e3 (0-0.3); BASOPHIL% 1.1 % (0-2.5); EOSINOPHIL# 0.2 X10e3 (0-0.7); EOSINOPHIL% 2.6 % (0.0-7.0); HEMATOCRIT 44.4 % (38.0-50.0); HEMOGLOBIN 15.1 gm/dL (13.0-16.0); LYMPHOCYTE# 0.8 X10e3 (1.0-3.5); LYMPHOCYTE% 9.9 % (17.0-45.0); MEAN CELL VOLUME 87.7 FL (83-96); MEAN CORPUSCULAR HEMOGLOBIN 29.8 PG (28-34); MEAN PLATELET VOLUME 7.4 FL (6.5-11.5); MONOCYTE# 1.2 X10e3 (0-1.0); MONOCYTE% 15.5 % (3.0-12.0); NEUTROPHIL# 5.6 X10e3 (1.5-7.1); NEUTROPHIL% 70.9 % (40-75); PLATELET COUNT 174 X10e3 (140-420); RED BLOOD COUNT 5.06 X10e (3.90-5.60); WHITE BLOOD COUNT 7.9 X10e3 (4.0-10.5)
[2016-11-30 08:51] LABS: DIFF IND YES
[2016-11-30 09:32] LABS: ALBUMIN SERUM 4.2 g/dL (3.5-5.0); BILIRUBIN,TOTAL 0.3 mg/dL (0.2-2.0); BUN/CREATININE RATIO 27.27; CALCIUM SERUM 9.3 mg/dL (8.4-10.2); CREATININE SERUM 1.1 mg/dL (0.6-1.4); GLOM FILT RATE Estimated 72.6 mL/min (>60); MAGNESIUM 1.5 mg/dL (1.6-3.0); POTASSIUM 4.4 mmol/L (3.5-5.1); PROTEIN TOTAL SERUM 7.1 g/dL (6.0-8.3)
[2016-11-30 10:54] LABS: ANISOCYTOSIS SL; PLATELET ESTIMATE NORMAL (NORMAL)
== END | disposition home or self-care (01) ==
LOC: CTPL 08:14
PROVIDERS: Surgery
DX: Z48.23 Encounter for aftercare following liver transplant (principal); T45.1X1D Poisoning by antineoplastic and immunosuppressive drugs, accidental (unintentional), subsequent encounter; C22.0 Liver cell carcinoma; E83.40 Disorders of magnesium metabolism, unspecified; Z13.1 Encounter for screening for diabetes mellitus; Z79.891 Long term (current) use of opiate analgesic
CPT/HCPCS: 36415; 80053; 80197; 82105; 83036; 83735; 85025